=== PATIENT | male | born 1970 ===

== ENCOUNTER → 2018-09-28 21:05 | Outpatient (REF) | payer OTHER, SELFPAY ==
[2018-09-28 21:42] LABS: Add Manual Diff / Slide Review NO; Basophils Absolute Auto 0 /uL (0-100); Basophils Percent Auto 0.7 % (0-2); Eosinophils Absolute Auto 0 /uL (0-450); Eosinophils Percent Auto 0.7 % (2-4); Hematocrit 52.4 % (41-53); Hemoglobin 17.1 g/dL (13.5-17.5); Lymphocytes Absolute Auto 1100 /uL (1100-4500); Lymphocytes Percent Auto 17.3 % (25-40); Mean Corpuscular HGB Conc 32.7 % (30-36); Mean Corpuscular Volume 91.6 fL (80-100); Monocytes Absolute Auto 500 /uL (0-900); Monocytes Percent Auto 7.8 % (3-14); Neutrophils Absolute Auto 4600 /uL (1500-7000); Neutrophils Percent Auto 73.5 % (50-75); Platelet Count 219 X10^3/uL (150-400); Red Blood Cell Count 5.72 X10^6/uL (4.5-5.9); Red Cell Distribution Width 14.2 % (11.6-14.8); White Blood Cell Count 6.3 X10^3/uL (4.5-11.0)
[2018-10-01 15:14] LABS: Estradiol 52 pg/mL (< 40)
[2018-10-01 16:06] LABS: PSA Total 1.04 ng/mL (< 4.01)
== END ==
LOC: LAB 21:05
PROVIDERS: Visit Provider Naturopath
DX: E29.1 Testicular hypofunction (principal); F43.23 Adjustment disorder with mixed anxiety and depressed mood; G47.00 Insomnia, unspecified
CPT/HCPCS: 36415; 82670; 84153; 84154; 84270; 84402; 84403; 85025